=== PATIENT | female | born 1960 | race Caucasian/White ===

== ENCOUNTER 2022-01-19 10:31 | Emergency (ER) | payer OTHER ==
[2022-01-19 11:14] VITALS: RESP 18
--- NOTE | 2022-01-19 11:46 | ED ---
Fall HPI - General Chief Complaint: Fall Stated Complaint: Fall, head/tailbone pain Time Seen by Provider: 01/19/22 11:18 Source: patient, family, RN notes reviewed Mode of arrival: ambulatory Limitations: no limitations - History of Present Illness Initial Comments: 61-year-old female presents emergency Department chief complaint of a fall. She states she fell over a chair onto a metal ledger. Patient states she did strike her head, had bruising of her ribs she states she's having continuous pain for last 3 weeks. She complains of right-sided rib pain, right-sided head neck pain and low back tailbone pain. Patient states that she has not been evaluated for this. She did have bruising of her ribs is now resolved but still continues to have pain. No abdominal pain no anterior chest pain or shortness of breath no fevers chills no other complaints. - Related Data Previous Rx's Medication Instructions Recorded Cyclobenzaprine [Flexeril] 10 mg PO TID PRN #15 tab 01/19/22 Ibuprofen [Motrin] 600 mg PO Q8HR PRN #20 tab 01/19/22 Allergies Allergy/AdvReac Type Severity Reaction Status Date / Time Penicillins Allergy Anaphylaxis Verified 01/19/22 11:14 Sulfa (Sulfonamide Allergy Anaphylaxis Verified 01/19/22 11:15 Antibiotics) Review of Systems ROS Statement: Those systems with pertinent positive or pertinent negative responses have been documented in the HPI. ROS Other: All systems not noted in ROS Statement are negative. Past Medical History Past Medical History: Hypertension Additional Past Medical History / Comment(s): colon cancer History of Any Multi-Drug Resistant Organisms: None Reported Past Surgical History: Section, Tonsillectomy Past Psychological History: No Psychological Hx Reported Smoking Status: Current every day smoker Past Alcohol Use History: Occasional Past Drug Use History: None Reported General Exam Limitations: no limitations General appearance: alert, in no apparent distress Head exam: Present: atraumatic, normocephalic, normal inspection Eye exam: Present: normal appearance, PERRL, EOMI. Absent: scleral icterus, conjunctival injection, periorbital swelling ENT exam: Present: normal exam, mucous membranes moist Neck exam: Present: normal inspection, full ROM. Absent: tenderness, meningismus, lymphadenopathy Respiratory exam: Present: normal lung sounds bilaterally, chest wall tenderness. Absent: respiratory distress, wheezes, rales, rhonchi, stridor Cardiovascular Exam: Present: regular rate, normal rhythm, normal heart sounds. Absent: systolic murmur, diastolic murmur, rubs, gallop, clicks Extremities exam: Present: normal inspection, full ROM, normal capillary refill. Absent: tenderness, pedal edema, joint swelling, calf tenderness Back exam: Present: full ROM, tenderness, paraspinal tenderness, vertebral tenderness Neurological exam: Present: alert, oriented X3, CN II-XII intact, reflexes normal. Absent: motor sensory deficit Skin exam: Present: warm, dry, intact, normal color. Absent: rash Course Vital Signs 01/19/22 11:06 Temperature 98.0 F Pulse Rate 104 H Respiratory 18 Rate Blood Pressure 160/80 O2 Sat by Pulse 96 Oximetry Medical Decision Making - Medical Decision Making 61-year-old presents from a fall. Patient had full imaging including CT brain and C-spine, lumbar spine, x-ray of the ribs with no acute fractures. A she'll be treated symptomatically will be discharged in stable condition return parameters were discussed. Disposition Clinical Impression: Fall, Contusion of rib on right side, Neck muscle strain, Low back pain Disposition: HOME SELF-CARE Condition: Stable Instructions (If sedation given, give patient instructions): Rib Contusion (ED) Additional Instructions: Please return to the Emergency Department if symptoms worsen or any other concerns. Prescriptions: Cyclobenzaprine [Flexeril] 10 mg PO TID PRN #15 tab PRN Reason: Muscle Spasm Ibuprofen [Motrin] 600 mg PO Q8HR PRN #20 tab PRN Reason: Pain Is patient prescribed a controlled substance at d/c from ED?: No Referrals: Nonstaff,Physician [Primary Care Provider] - 1-2 days Time of Disposition: 12:28
--- NOTE | 2022-01-19 12:09 | XR ---
EXAMINATION TYPE: XR lumbosacral spine min 4V DATE OF EXAM: 01/19/2022 COMPARISON: The HISTORY: Pain fall TECHNIQUE: 5V lumbar spine FINDINGS: There are 5 lumbar-type vertebral bodies. Pedicles are intact. Facet degenerative changes p resent L5-S1. No spondylolytic defects are evident. Posterior disc space narrowing is present at L2-3 through L5-S1. Vertebral body heights are preserved. IMPRESSION: 1. Mild posterior disc space narrowing.
--- NOTE | 2022-01-19 12:13 | XR ---
EXAMINATION TYPE: XR ribs RT w pa chest xray DATE OF EXAM: 01/19/2022 COMPARISON: None HISTORY: Fall, pain TECHNIQUE: AP chest 2 view right RIBS FINDINGS: Heart size normal. Pulmonary vasculature is normal. Lungs are clear. No pneumothorax is connie dent. No displaced rib fractures are evident. Costochondral cartilage calcification is present. IMPRESSION: 1. Normal right ribs. Follow-up can be performed as clinically indicated
--- NOTE | 2022-01-19 12:15 | CT ---
EXAMINATION TYPE: CT brain telly wo con DATE OF EXAM: 01/19/2022 COMPARISON: None HISTORY: 61-year-old female Fall, c/o SERRATO, neck pain CT DLP: 1351.7 mGycm Automated exposure control for dose reduction was used. Technique: Examination of the head was done in axial plane without intravenous contrast. Coronal and sagittal reconstructions performed. CT of the cervical spine was obtained in axial plane without intravenous injection of contrast mater ial. Coronal and sagittal reformatted images were obtained from the axial views for evaluation of f ractures, spinal alignment and canal. FINDINGS: Head: There is no evidence of acute intracranial hemorrhage, acute ischemic changes, mass, mass-effect, or extra-axial fluid collection. There is no effacement of cerebral sulci or basal subarachnoid cister ns. There is no hydrocephalus. There is no midline shift. Diaz-white matter distinction is preserv ed. Mild mucosal thickening maxillary and ethmoid sinuses. Orbits and globes are intact. Mastoid air cell s well pneumatized. Cervical spine: No craniocervical junction abnormality, predental space widening, or prevertebral soft tissue swellin g. Degenerative changes C1 dens articulation. Moderate multilevel degenerative disc disease especially mid to lower cervical spine as well as hyper trophic facet and uncovertebral joint arthropathy. There is degenerative bony ankylosis towards the l eft at C4-C5. Degenerative grade 1 anterolisthesis C4-C5 and C7-T1. Disc osteophyte complex results in mild spinal canal stenoses at C5-C6 and C6-C7. There are variable moderate neuroforaminal stenoses throughout. No acute fracture seen of the cervical spine. Sagittal and coronal reformatted images confirm above findings. COMBINED IMPRESSION: 1. No acute intracranial abnormality seen. 2. No acute fracture of the cervical spine. Moderate spondylotic change with degenerative grade 1 ant erolisthesis C4-C5 and C7-T1.
[2022-01-19] MEDS ORDERED: HYDROcodone/APAP 5-325MG 1 EACH TAB PO STA (12:22)
[2022-01-19] MEDS ORDERED: ACET/COD 300 MG/30 MG STARTER PACK 6 TAB BTL PO STA (12:22)
[2022-01-19 12:56] VITALS: BP 174/99; PULSE 98; TEMP 98.1
== END 2022-01-19 12:56 | disposition home or self-care (01) ==
LOC: EC 10:31
DX: S16.1XXA Strain of muscle, fascia and tendon at neck level, initial encounter (principal); M54.50 Low back pain, unspecified; S20.211A Contusion of right front wall of thorax, initial encounter; I10 Essential (primary) hypertension; F17.200 Nicotine dependence, unspecified, uncomplicated; Z88.0 Allergy status to penicillin; Z88.2 Allergy status to sulfonamides; W01.190A Fall on same level from slipping, tripping and stumbling with subsequent striking against furniture, initial encounter
CPT/HCPCS: 70450; 72110; 72125; 99284